=== PATIENT | male | born 1975 | race Caucasian/White ===

== ENCOUNTER 2023-10-01 04:17 | Emergency (ER) | payer BC ==
[~2023-10-01] VITALS: Ht 167.6 cm; Wt 75.7 kg
[2023-10-01 04:22] VITALS: BP_SYST 113; PULSE 82; RESP 17; TEMP 98.3; O2SAT 99
[2023-10-01] MEDS: ASPIRIN 81 MG TAB.CHEW PO ONE (04:32)
[2023-10-01] MEDS: MORPHINE 2 MG/ML INJ. SYRINGE IVP ONE (05:13)
[2023-10-01 05:17] LABS: BASOPHILS % (AUTO) 0.4 % (0.0-2.0); EOSINOPHILS # (AUTO) 0.1 K/uL (0.0-0.4); EOSINOPHILS % (AUTO) 0.8 % (0.0-4.0); HEMATOCRIT 42.9 % (36-54); HEMOGLOBIN 15.1 g/dL (14.0-18.0); LYMPHOCYTES # (AUTO) 2.2 K/uL (1.0-5.5); LYMPHOCYTES % (AUTO) 18.4 % (20.5-51.5); MEAN CORPUSCULAR HEMOGLOBIN 31 pg (27-31); MEAN CORPUSCULAR HGB CONC 35 % (32-36); MEAN CORPUSCULAR VOLUME 88 fL (79.0-98.0); MONOCYTES # (AUTO) 0.8 K/uL (0.0-1.0); MONOCYTES % (AUTO) 6.8 % (1.7-9.3); NEUTROPHILS % (AUTO) 73.6 % (40.0-70.0); PLATELET COUNT (AUTO) 190 K/uL (130-430); RED BLOOD CELL COUNT(AUTO) 4.89 MIL/uL (4.2-6.2); RED CELL DISTRIBUTION WIDTH 13.4 % (9.0-15.0); WHITE BLOOD COUNT (AUTO) 12.2 K/uL (4.8-10.8)
[2023-10-01 05:32] LABS: PROTHROMBIN TIME 9.9 SECS (9.5-12.5)
[2023-10-01 05:33] LABS: ALANINE AMINOTRANSFERASE 31 U/L (12-78); ALBUMIN 4.1 g/dL (3.4-4.8); ANION GAP 6 (5-15); ASPARTATE AMINOTRANSFERASE 16 U/L (10-37); CALCIUM 8.8 mg/dL (8.4-11.0); CARBON DIOXIDE 29 mmol/L (23-29); CHLORIDE 106 mmol/L (98-107); CREATININE 1.16 mg/dL (0.55-1.30); GFR AFRICAN AMERICAN 86 mL/min (>90); GLUCOSE 105 mg/dL (74-106); POTASSIUM 4.2 mmol/L (3.5-5.1); SODIUM SERUM 141 mmol/L (136-145); TOTAL BILIRUBIN 0.4 mg/dL (0.0-1.0); TOTAL PROTEIN, SERUM 7.1 g/dL (6.4-8.3); UREA NITROGEN, BLOOD 23 mg/dL (8-21)
[2023-10-01 05:35] LABS: GFR NON AFRICAN-AMERICAN 71 mL/min (>90)
[2023-10-01 06:17] LABS: BILIRUBIN,DIRECT 0.2 mg/dL (0.0-0.3)
[2023-10-01 09:16] VITALS: BP_SYST 110; PULSE 59; RESP 16; TEMP 98.3; O2SAT 96
== END 2023-10-01 09:16 | disposition home or self-care (01) ==
LOC: SED 04:17
DX: M25.512 Pain in left shoulder (principal); R07.89 Other chest pain
CPT/HCPCS: 99285; 96374; 71045; 80076; 80048; 83880; 85025; 85379; 85610; 85730; 84484; 36415; 93005; 73030; J2270